=== PATIENT | male | born 1955 | race Caucasian/White ===

== ENCOUNTER → 2017-03-27 10:14 | Outpatient (CLI) | payer OTHER, SELFPAY ==
--- NOTE | 2017-03-27 10:33 | EKG12_ITS ---
Test Reason : PRE OP Blood Pressure : / mmHG Vent. Rate : 070 BPM Atrial Rate : 070 BPM P-R Int : 136 ms QRS Dur : 092 ms QT Int : 396 ms P-R-T Axes : 056 059 060 degrees QTc Int : 427 ms Normal sinus rhythm Minimal voltage criteria for LVH, may be normal variant Borderline ECG Confirmed by EVELIN RAGLAND, MELLO ([id number]), commercial production editor LISETH FISH ([id number]) on 03/30/2017 10:58:24 AM Referred By: [facility] Confirmed By:MELLO WATERS MD
[2017-03-27 12:05] LABS: Anion Gap 7 (5-15); BUN 11 mg/dL (7-18); BUN/Creat Ratio 14.5 RATIO (10-20); Calcium,Total 8.9 mg/dL (8.5-10.1); Chloride 105 mmol/L (98-107); Creatinine, Serum 0.76 mg/dL (0.70-1.30); EST Glomerular Filtration Rate 110 mL/min (>60); Est Glom Filt Rate - Afr Amer 134 mL/min (>60); Glucose 86 mg/dL (74-106); Potassium 4.6 mmol/L (3.5-5.1); Sodium Level 141 mmol/L (136-145)
== END ==
PROVIDERS: Family Provider Internal Medicine; PCP Internal Medicine; Visit Provider Otolaryngology
DX: Z01.818 Encounter for other preprocedural examination (principal)
CPT/HCPCS: 36415; 80048; 93005

== ENCOUNTER → 2017-04-02 16:03 | Outpatient (CLI) | payer OTHER, SELFPAY ==
--- NOTE | 2017-04-02 09:10 | NASAL_PTH ---
PATIENT: LAILA MCKEON LOC: [facility] U#:[id number] AGE/SX: 69/M ROOM: RE04/02/[address]: Dr. Larry Brothers MD : 1955 BED: DIS: SPEC #: [id number] RECD: 04/02/17 15:27 STATUS: SHAY YASMEEN #: [id number] USHA: 04/02/17 09:[address]: Larry Brothers DEPT: SURGICAL PATHOLOGY RECD BY: Erasmo Leiva ENTERED: 04/03/17 07:46 SP TYPE: NASAL SPEC OTHR DR: Dr. Cherelle Mccarthy MD [facility] Tissues: NASAL POLYP Procedures: Surgery Specimen Level IV HEADER OPERATION: Rhinoplasty, inferior turbinate reduction, possible nasal implants PRE-OP DIAGNOSIS: Acquired deformity of nose, nasal congestion, deviated nasal septum, hypertrophy of nasal turbinates TISSUE SUBMITTED: Left nasal polyp MICROSCOPIC DIAGNOSIS Left nasal polyp, biopsy: Fragments of benign inflamed mucosal polyp. GREG:amrik 04/06/17 MICROSCOPIC DESCRIPTION Slides are reviewed. GROSS DESCRIPTION Received is one container labeled with the patient's name and not further designated. The specimen consists of multiple polypoid pieces of juarez soft tissue that in aggregate measure 1.5 x 1 x 0.2 cm. The specimen is totally submitted in one cassette. / GREG:amrik 04/03/17 TC:5 CPT: 74343
== END ==
PROVIDERS: Family Provider Internal Medicine; PCP Internal Medicine; Visit Provider Otolaryngology
DX: M95.0 Acquired deformity of nose (principal); J34.2 Deviated nasal septum; J34.3 Hypertrophy of nasal turbinates; R09.81 Nasal congestion
CPT/HCPCS: 88304; 88305

== ENCOUNTER → 2017-05-12 07:15 | Outpatient (CLI) | payer OTHER, SELFPAY ==
--- NOTE | 2017-05-12 07:18 | CT_ITS ---
STUDY: CT MAXILLOFACIAL SINUSES REASON FOR EXAM: Male, 62 years old. Sinusitis. History of prior rhinoplasty. RADIATION DOSAGE (If Supplied By Facility): CTDIvol = ( 33.06 ) mGy, DLP = ( 780.13 ) mGycm TECHNIQUE: The patient was scanned in a multi detector CT scanner. High resolution axial imaging was performed without the administration of intravenous contrast material. Sagittal and coronal images were reconstructed. Individualized dose optimization techniques were used for this CT. COMPARISON: None. FINDINGS: FRONTAL SINUSES: Mucosal thickening of the frontal sinuses. ETHMOIDAL SINUSES: Opacification of the ethmoid sinuses bilaterally worse on the left side. MAXILLARY SINUSES: Opacification of both maxillary sinuses worse on the right side. SPHENOIDAL SINUSES: Mucosal thickening of the sphenoid sinuses. There is compromise of the ostiomeatal complexes bilaterally due to mucosal hypertrophy. Normal bilateral middle turbinates. Normal bilateral inferior turbinates. Normal midline nasal septum. There is patency of the bilateral nasal airways. The visualized osseous structures are normal. The visualized bilateral orbital contents are normal. CT/Sinus/Facial Bone IMPRESSION: Caicedo sinusitis. Electronically Signed: Elie Ferro MD at 15:38 EDT Tel [phone], Service support ,
== END ==
PROVIDERS: Family Provider Internal Medicine; PCP Internal Medicine; Visit Provider Otolaryngology
DX: J32.9 Chronic sinusitis, unspecified (principal)
CPT/HCPCS: 70486